=== PATIENT | male | born 1980 | race Caucasian/White ===

== ENCOUNTER 2016-10-10 14:00 | Outpatient (RCR) | payer OTHER ==
[~2016-10-10 14:00] MED LIST: AMITRIP50 PO; ATARAX25 PO; ATARAX50 PO; CHAN0.5P PO; CIPRO250 PO; CIPRO500 PO; DOXYCYC100 PO; FLONASESPR NASAL; LEXAPRO10 PO; MOTRIN800 PO; PROZAC20 PO; SINGULAI10 PO; VARE05TA; [UNRECOGNIZED DRUG - CODE] PO
== END 2016-10-11 | disposition home or self-care (01) ==
LOC: M OUTALCOH 14:00
PROVIDERS: ATTEND Psychiatry & Neurology Psychiatry
DX: F10.20 Alcohol dependence, uncomplicated (principal); F11.20 Opioid dependence, uncomplicated; F14.20 Cocaine dependence, uncomplicated; F12.20 Cannabis dependence, uncomplicated; F17.200 Nicotine dependence, unspecified, uncomplicated

== ENCOUNTER 2016-11-03 16:00 | Outpatient (RCR) | payer OTHER | END 2016-11-08 | LOC: M OUTALCOH 16:00 | PROVIDERS: ATTEND Psychiatry & Neurology Psychiatry | DX: F11.20 Opioid dependence, uncomplicated (principal); F14.20 Cocaine dependence, uncomplicated; F12.20 Cannabis dependence, uncomplicated; F10.20 Alcohol dependence, uncomplicated; F17.200 Nicotine dependence, unspecified, uncomplicated ==

== ENCOUNTER → 2016-11-07 | Outpatient (REF) | payer OTHER ==
[2016-11-07 17:54] LABS: FREE T4 1.07 NG/DL (0.76-1.46)
== END ==
LOC: M LABDRAW1 17:02
PROVIDERS: ATTEND Family Medicine
DX: R53.83 Other fatigue (principal); N52.9 Male erectile dysfunction, unspecified

== ENCOUNTER 2016-12-08 16:00 | Outpatient (RCR) | payer OTHER | END 2016-12-09 | LOC: M OUTALCOH 16:00 | PROVIDERS: ATTEND Psychiatry & Neurology Psychiatry | DX: F11.20 Opioid dependence, uncomplicated (principal); F14.20 Cocaine dependence, uncomplicated; F12.20 Cannabis dependence, uncomplicated; F10.20 Alcohol dependence, uncomplicated; F17.200 Nicotine dependence, unspecified, uncomplicated ==

== ENCOUNTER → 2016-12-20 | Emergency (ER) | payer MEDICAID, OTHER ==
[~2016-12-20] VITALS: Ht 190.5 cm; Wt 99.8 kg
[~2016-12-20] MED LIST changes: +AUGM875T27 PO; +AUGMENTIN 875 MG TAB PO ONE; +CETI10TA PO; +D3-5CAP PO; +MONT10TA2 PO
[2016-12-20 21:12] VITALS: BP 122/77
== END | disposition home or self-care (01) ==
LOC: M ED 21:06
DX: H66.91 Otitis media, unspecified, right ear (principal); Z88.5 Allergy status to narcotic agent; Z88.0 Allergy status to penicillin; Z91.018 Allergy to other foods; Z79.899 Other long term (current) drug therapy; J45.909 Unspecified asthma, uncomplicated; N41.1 Chronic prostatitis

== ENCOUNTER 2016-12-28 08:00 | Outpatient (RCR) | payer MEDICAID ==
[~2016-12-28 08:00] MED LIST changes: -AUGMENTIN 875 MG TAB PO ONE
== END 2017-01-08 ==
LOC: M OUTALCOH 08:00
PROVIDERS: ATTEND Psychiatry & Neurology Psychiatry
DX: F11.20 Opioid dependence, uncomplicated (principal); F14.20 Cocaine dependence, uncomplicated; F12.20 Cannabis dependence, uncomplicated; F10.20 Alcohol dependence, uncomplicated; F17.200 Nicotine dependence, unspecified, uncomplicated

== ENCOUNTER 2017-01-23 16:00 | Outpatient (RCR) | payer OTHER | END 2017-02-08 | LOC: M OUTALCOH 16:00 | PROVIDERS: ATTEND Psychiatry & Neurology Psychiatry | DX: F10.20 Alcohol dependence, uncomplicated (principal); F11.20 Opioid dependence, uncomplicated; F14.20 Cocaine dependence, uncomplicated; F12.20 Cannabis dependence, uncomplicated; F17.200 Nicotine dependence, unspecified, uncomplicated ==

== ENCOUNTER 2017-03-01 13:37 | Outpatient (RCR) | payer MEDICAID ==
[~2017-03-01 13:37] MED LIST changes: -AUGM875T27 PO; +AUGM875T28 PO
== END 2017-03-10 ==
LOC: M OUTALCOH 13:37
PROVIDERS: ATTEND Psychiatry & Neurology Psychiatry
DX: F11.20 Opioid dependence, uncomplicated (principal); F14.20 Cocaine dependence, uncomplicated; F12.20 Cannabis dependence, uncomplicated; F10.20 Alcohol dependence, uncomplicated; F17.200 Nicotine dependence, unspecified, uncomplicated

== ENCOUNTER 2017-03-27 11:03 | Outpatient (RCR) | payer MEDICAID | END 2017-04-10 | LOC: M OUTALCOH 11:03 | PROVIDERS: ATTEND Psychiatry & Neurology Psychiatry | DX: F10.20 Alcohol dependence, uncomplicated (principal); F11.20 Opioid dependence, uncomplicated; F14.20 Cocaine dependence, uncomplicated; F17.200 Nicotine dependence, unspecified, uncomplicated ==

== ENCOUNTER 2017-04-17 15:49 | Outpatient (RCR) | payer MEDICAID ==
[2017-05-11] MEDS ORDERED: NAPR500T PO (23:46)
== END 2017-05-11 ==
LOC: M OUTALCOH 15:49
PROVIDERS: ATTEND Psychiatry & Neurology Psychiatry
DX: F10.20 Alcohol dependence, uncomplicated (principal); F11.20 Opioid dependence, uncomplicated; F14.20 Cocaine dependence, uncomplicated; F12.20 Cannabis dependence, uncomplicated; F17.200 Nicotine dependence, unspecified, uncomplicated

== ENCOUNTER 2017-05-11 22:23 | Emergency (ER) | payer MEDICAID, OTHER ==
[~2017-05-11] VITALS: Ht 190.5 cm; Wt 104.5 kg
[2017-05-11 22:24] VITALS: BP 134/84
[2017-05-11] MEDS ORDERED: NAPROXEN 250 MG TAB PO ONE (23:45)
[2017-05-11] MEDS ORDERED: NAPR500T PO (23:46)
== END 2017-05-12 00:18 | disposition home or self-care (01) ==
LOC: M ED 22:23
DX: S93.491A Sprain of other ligament of right ankle, initial encounter (principal); X58.XXXA Exposure to other specified factors, initial encounter; Y92.019 Unspecified place in single-family (private) house as the place of occurrence of the external cause; Y93.89 Activity, other specified; Y99.8 Other external cause status; Z88.1 Allergy status to other antibiotic agents; Z88.5 Allergy status to narcotic agent; Z91.018 Allergy to other foods

== ENCOUNTER 2017-05-23 11:53 | Outpatient (RCR) | payer MEDICAID ==
[~2017-05-23 11:53] MED LIST changes: +NAPR500T PO
== END 2017-06-10 ==
LOC: M OUTALCOH 11:53
PROVIDERS: ATTEND Psychiatry & Neurology Psychiatry
DX: F11.20 Opioid dependence, uncomplicated (principal); F12.20 Cannabis dependence, uncomplicated; F14.20 Cocaine dependence, uncomplicated; F10.20 Alcohol dependence, uncomplicated; F17.200 Nicotine dependence, unspecified, uncomplicated

== ENCOUNTER → 2017-07-19 | Outpatient (CLI) | payer OTHER | LOC: M LAB 12:08 | PROVIDERS: ATTEND Family Medicine | DX: R35.0 Frequency of micturition (principal) ==

== ENCOUNTER → 2017-07-19 | Outpatient (CLI) | payer OTHER ==
[2017-07-19 13:02] LABS: CONTROL LINE MONO INT CTR LINE PRESENT
== END ==
LOC: M LAB 12:06
PROVIDERS: ATTEND Physician Assistant
DX: R53.83 Other fatigue (principal)

== ENCOUNTER 2018-03-20 12:59 | Emergency (ER) | payer OTHER | END 2018-03-20 15:24 | disposition home or self-care (01) | LOC: M ED 12:59 | DX: M75.80 Other shoulder lesions, unspecified shoulder (principal); J45.909 Unspecified asthma, uncomplicated; Z79.1 Long term (current) use of non-steroidal anti-inflammatories (NSAID); Z88.0 Allergy status to penicillin; Z88.5 Allergy status to narcotic agent; Z91.018 Allergy to other foods; F17.210 Nicotine dependence, cigarettes, uncomplicated | CPT/HCPCS: 99283 ==

== ENCOUNTER 2018-11-17 16:33 | Emergency (ER) | payer OTHER ==
[~2018-11-17] VITALS: Ht 190.5 cm; Wt 100.0 kg
[~2018-11-17 16:33] MED LIST changes: +NAPR-50 PO; -NAPR500T PO
[2018-11-17] MEDS ORDERED: ACETAMINOPHEN 325 MG TAB PO ONE (17:15)
[2018-11-17] MEDS ORDERED: ONDANSETRON 4 MG ORAL DISINTEGRATING TAB (Q0162 PER 1MG) PO ONE (17:15)
[2018-11-17] MEDS ORDERED: LIDOCAINE 4% CREAM 5GM (LMX4) TOP ONE (17:15)
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
[2018-11-17] MEDS ORDERED: DERMABOND TOPICAL SKIN ADHESIVE TOP ONE (18:15)
[2018-11-17 18:17] VITALS: BP 119/83
== END 2018-11-17 18:17 | disposition home or self-care (01) ==
LOC: M ED 16:33
DX: S01.111A Laceration without foreign body of right eyelid and periocular area, initial encounter (principal); S09.90XA Unspecified injury of head, initial encounter; W22.8XXA Striking against or struck by other objects, initial encounter; Y92.89 Other specified places as the place of occurrence of the external cause; F90.9 Attention-deficit hyperactivity disorder, unspecified type; F17.200 Nicotine dependence, unspecified, uncomplicated; Z88.0 Allergy status to penicillin; Z88.5 Allergy status to narcotic agent; Z91.018 Allergy to other foods
CPT/HCPCS: 12011; 70450; 70480; 99283; Q0162

== ENCOUNTER → 2019-11-25 | Outpatient (REF) | payer OTHER ==
[~2019-11-25] MED LIST changes: -MONT10TA2 PO; +MONT10TA4 PO; -NAPR-50 PO; +NAPR-837 PO
== END ==
LOC: M LAB REF 15:51
PROVIDERS: ATTEND Physician Assistant Medical
DX: R53.83 Other fatigue (principal)

== ENCOUNTER → 2020-06-22 | Outpatient (CLI) | payer OTHER ==
--- NOTE | 2020-06-25 13:40 | REP ---
TARGETED LEEFT BREAST AND COMPARISON RIGHT BREAST SUBAREOLAR SONOGRAPHY HISTORY: Painful mass behind the nipple of the left breast x2 weeks. COMPARISON BREAST IMAGING: None. FINDINGS: Subareolar sonography on the left demonstrates a fan-shaped area of subareolar hypoechoic fibroglandular tissue consistent with gynecomastia. No acoustic shadowing or architectural distortion is seen. Similar changes are noted on the right in the retroareolar region although less pronounced. IMPRESSION: BI-RADS Category 2 benign findings, gynecomastia pattern subareolar region left greater than right. Clinical follow-up is advised. JENNIFER
== END ==
LOC: M RAD 13:19
PROVIDERS: ATTEND Physician Assistant
DX: N62 Hypertrophy of breast (principal); N63.20 Unspecified lump in the left breast, unspecified quadrant

== ENCOUNTER 2021-02-26 22:59 | Emergency (ER) | payer OTHER ==
[~2021-02-26] VITALS: Ht 190.5 cm; Wt 100.1 kg
[~2021-02-26 22:59] MED LIST changes: +MONT10TA10 PO; -MONT10TA4 PO
--- NOTE | 2021-02-27 00:01 | REPVR ---
PROCEDURE INFORMATION: Exam: XR Left Knee Exam date and time: 02/26/2021 11:08 PM Age: 40 years old Clinical indication: Injury TECHNIQUE: Imaging protocol: XR Left knee. Views: 4 or more views. COMPARISON: No relevant prior studies available. FINDINGS: Bones/joints: There is no fracture or dislocation. No joint effusion is identified. The joint spaces are preserved. No arthropathy is noted. Incidental note is made of a small bone island in the left medial femoral condyle. Soft tissues: Unremarkable. IMPRESSION: No fracture or dislocation of the left knee. Electronically signed by: Manish Garcia On 02/27/2021 00:00:37 AM
[2021-02-27] MEDS ORDERED: predniSONE 20 MG TAB PO ONE (01:15)
[2021-02-27] MEDS ORDERED: PRED20TA PO (01:19)
[2021-02-27 01:39] VITALS: BP 120/66
== END 2021-02-27 01:45 | disposition home or self-care (01) ==
LOC: M ED 22:59
DX: M70.52 Other bursitis of knee, left knee (principal); F90.9 Attention-deficit hyperactivity disorder, unspecified type; Z88.1 Allergy status to other antibiotic agents; Z88.6 Allergy status to analgesic agent; F17.200 Nicotine dependence, unspecified, uncomplicated
CPT/HCPCS: 73564; 99283; J7512

== ENCOUNTER 2021-05-05 09:21 | Emergency (ER) | payer OTHER ==
[~2021-05-05] VITALS: Ht 188 cm; Wt 98.6 kg
[~2021-05-05 09:21] MED LIST changes: +PRED20TA PO
[2021-05-05] MEDS ORDERED: METH10CO PO (09:26)
--- NOTE | 2021-05-05 10:52 | REP ---
INDICATION: hurts to breath in decreased breath sounds r>L. COMPARISON: Comparison chest x-ray February 23, 2009. TECHNIQUE: Two views.. FINDINGS: There is platelike atelectasis in the lung bases bilaterally, right greater than left there is no evidence of pneumothorax or hydrothorax. Heart is not enlarged. Pulmonary vasculature is not felt to be increased. No infiltrate is appreciated. No acute bony abnormality is seen.. IMPRESSION: Bibasilar discoid atelectasis, right greater than left. <Electronically signed by Carlos Gan > 05/05/21 [id number]
--- NOTE | 2021-05-05 10:53 | REP ---
INDICATION: chest pain right with breathing. COMPARISON: Comparison is made with today's chest x-ray. TECHNIQUE: Four views of the right rib cage. FINDINGS: There is platelike atelectasis in the lung bases bilaterally, right more so than left. There is no evidence of pneumothorax. No visible hydrothorax. Multiple views of the right rib cage show no visible rib fracture or bony destructive lesion. IMPRESSION: Bibasilar discoid atelectasis in the lungs. Otherwise negative right rib radiographs. <Electronically signed by Carlos Gan > 05/05/21 [id number]
[2021-05-05 11:04] LABS: BASO % 0.5 % (0.0-1.0); EOS # 0.1 10^3/uL (0.0-0.5); EOS % 0.9 % (0.0-3.0); HEMATOCRIT 40.3 % (42.0-52.0); HEMOGLOBIN 13.4 g/dl (13.5-17.5); LYMPH # 1.8 10^3/uL (1.5-5.0); LYMPH % 21.2 % (24.0-44.0); MEAN CORPUSCULAR HGB CONC 33.3 g/dl (32.0-36.5); MEAN CORPUSCULAR VOLUME 90.2 fl (80.0-96.0); MONO # 0.7 10^3/uL (0.0-0.8); MONO % 8.1 % (2.0-8.0); NEUTROPHILS # 5.9 10^3/uL (1.5-8.5); NEUTROPHILS % 68.9 % (36.0-66.0); PLATELET COUNT, AUTOMATED 273 10^3/uL (150-450); RED BLOOD COUNT 4.47 10^6/uL (4.30-6.10); WHITE BLOOD COUNT 8.5 10^3/uL (4.0-10.0)
[2021-05-05 11:32] LABS: ALBUMIN 3.5 GM/DL (3.2-5.2); ALT/SGPT 28 U/L (12-78); BILIRUBIN,DIRECT < 0.1 MG/DL (0.0-0.2); BILIRUBIN,TOTAL 0.4 MG/DL (0.2-1.0); CK-MB VALUE MASS < 1.0 NG/ML (<3.6); CPK CREATINE PHOSPHOKINASE 144 U/L (39-308); LIPASE 73 U/L (73-393); MB/CK RELATIVE INDEX 0.69 (< OR =4); TOTAL PROTEIN 7.4 GM/DL (6.4-8.2); TROPONIN I < 0.02 NG/ML (< 0.10)
[2021-05-05] MEDS ORDERED: ISOVUE-370 76% 100ML VIAL As Ordered ONE (11:45)
--- NOTE | 2021-05-05 12:33 | REP ---
INDICATION: cp and elevated dimer COMPARISON: None. TECHNIQUE: Axial contrast enhanced images from the thoracic inlet to the upper abdomen using pulmonary embolus technique with multiplanar re-formations. 75 ml Isovue 370 intravenous contrast material administered without complication. This CT examination was performed using the following dose reduction techniques: Automated exposure control, adjustment of mA and/or kv according to the patient's size, and use of iterative reconstruction technique. FINDINGS: Satisfactory enhancement of the pulmonary vasculature is achieved and no filling defects are identified to suggest pulmonary embolus. Further evaluation of the mediastinum demonstrates normal thoracic aorta, heart and pericardium. Moderate areas of ill-defined atelectasis/consolidation identified in the bilateral lower lobes and right middle lobe. No effusion. No pneumothorax. Tracheobronchial tree is patent. No significant adenopathy. Osseous structures are intact. Limited upper abdomen unremarkable. IMPRESSION: No evidence for pulmonary embolus. Ill-defined multifocal basilar opacities suggesting elements of atelectasis and or pneumonia. <Electronically signed by Reginaldo Cash > 05/05/21 [id number]
[2021-05-05 12:51] LABS: RSV AMPLIFICATION NEGATIVE (NEGATIVE)
[2021-05-05] MEDS ORDERED: IPRATROPIUM 0.5MG/ALBUTEROL 2.5MG INH SOL UD 3ML (DUONEB) NEB ONE (13:00)
[2021-05-05] MEDS ORDERED: ALBU83IN NEB (13:01)
[2021-05-05] MEDS ORDERED: DOXY1CAP62 PO (13:08)
[2021-05-05 13:34] VITALS: BP 138/85
--- NOTE | 2021-05-06 18:42 | ECGEPIP ---
[facility] - ED Test Date: 2021-05-05 Pat Name: TAJ OVERTON Department: Room: - Gender: Male Supervisor Webbing: JANNET : 1980 Requested By: VIRA Coburn PA-C Order Number: [id number] Reading MD: Racheal Scales Measurements Intervals Mercer Rate: 57 P: 46 GA: 184 QRS: 46 QRSD: 102 T: 22 QT: 434 QTc: 422 Interpretive Statements Sinus bradycardia No prior Electronically Signed on 05-06-2021 18:42:40 EDT by Racheal Scales
== END 2021-05-05 13:36 | disposition home or self-care (01) ==
LOC: M ED 09:21
DX: J18.9 Pneumonia, unspecified organism (principal); R07.9 Chest pain, unspecified; F11.20 Opioid dependence, uncomplicated; Z88.1 Allergy status to other antibiotic agents; Z88.6 Allergy status to analgesic agent; Z91.018 Allergy to other foods
CPT/HCPCS: 36415; 71046; 71100; 71275; 80047; 80076; 82550; 82553; 83690; 85025; 85379; 87631; 93005; 94010; 94640; 99284; Q9967

== ENCOUNTER → 2021-06-10 | Outpatient (REF) | payer OTHER ==
[~2021-06-10] MED LIST changes: +ALBU83IN NEB; +DOXY1CAP62 PO; +METH10CO PO
== END ==
LOC: M LAB REF 22:34
PROVIDERS: ATTEND Physician Assistant
DX: R05 Cough (principal)

== ENCOUNTER → 2021-11-30 | Outpatient (CLI) | payer OTHER ==
[~2021-11-30] MED LIST changes: +DOXY-443 PO; -DOXY1CAP62 PO; -MONT10TA10 PO; +MONT10TA97 PO
[2021-11-30 13:20] LABS: BASO # 0.1 10^3/uL (0.0-0.2); BASO % 0.8 % (0.0-1.0); EOS # 0.2 10^3/uL (0.0-0.5); EOS % 2.6 % (0.0-3.0); HEMATOCRIT 41.9 % (42.0-52.0); HEMOGLOBIN 14.1 g/dl (13.5-17.5); LYMPH # 2.7 10^3/uL (1.5-5.0); MEAN CORPUSCULAR HEMOGLOBIN 30.5 pg (27.0-33.0); MEAN CORPUSCULAR HGB CONC 33.7 g/dl (32.0-36.5); MEAN CORPUSCULAR VOLUME 90.5 fl (80.0-96.0); MONO # 0.7 10^3/uL (0.0-0.8); MONO % 9.2 % (2.0-8.0); NEUTROPHILS % 52.1 % (36.0-66.0); PLATELET COUNT, AUTOMATED 285 10^3/uL (150-450); RED BLOOD COUNT 4.63 10^6/uL (4.30-6.10); WHITE BLOOD COUNT 7.7 10^3/uL (4.0-10.0)
[2021-11-30 13:46] LABS: ALT/SGPT 23 U/L (12-78); BILIRUBIN,TOTAL 0.3 MG/DL (0.2-1.0); BLOOD UREA NITROGEN 13 MG/DL (7-18); CALCIUM LEVEL 9.5 MG/DL (8.5-10.1); CARBON DIOXIDE LEVEL 31 MEQ/L (21-32); CHLORIDE LEVEL 105 MEQ/L (98-107); CHOLESTEROL LEVEL 215 MG/DL (<200); CREATININE FOR GFR 1.03 MG/DL (0.70-1.30); GLOMERULAR FILTRATION RATE > 60.0 (>60); GLUCOSE, FASTING 80 MG/DL (70-100); POTASSIUM SERUM 4.1 MEQ/L (3.5-5.1); SODIUM LEVEL 140 MEQ/L (136-145); TRIGLYCERIDES LEVEL 193 MG/DL (<150)
[2021-11-30 13:47] LABS: ALBUMIN 3.9 GM/DL (3.2-5.2); CHOLESTEROL RISK RATIO 6.935 (<5); HDL CHOLESTEROL 31 MG/DL (>40); LDL CHOLESTEROL 145 MG/DL (<100); NON-HDL-C 184 MG/DL; TOTAL PROTEIN 7.2 GM/DL (6.4-8.2)
== END ==
LOC: M WUC 11:49
PROVIDERS: ATTEND Physician Assistant
DX: Z13.220 Encounter for screening for lipoid disorders (principal)

== ENCOUNTER → 2021-11-30 | Outpatient (CLI) | payer OTHER ==
[2021-11-30 13:20] LABS: HEMATOCRIT 42.2 % (42.0-52.0); HEMOGLOBIN 14.2 g/dl (13.5-17.5); MEAN CORPUSCULAR HEMOGLOBIN 30.5 pg (27.0-33.0); MEAN CORPUSCULAR HGB CONC 33.6 g/dl (32.0-36.5); MEAN CORPUSCULAR VOLUME 90.8 fl (80.0-96.0); PLATELET COUNT, AUTOMATED 286 10^3/uL (150-450); RED BLOOD COUNT 4.65 10^6/uL (4.30-6.10); WHITE BLOOD COUNT 7.8 10^3/uL (4.0-10.0)
[2021-11-30 13:46] LABS: ALT/SGPT 22 U/L (12-78); BILIRUBIN,TOTAL 0.3 MG/DL (0.2-1.0); BLOOD UREA NITROGEN 13 MG/DL (7-18); CALCIUM LEVEL 9.5 MG/DL (8.5-10.1); CARBON DIOXIDE LEVEL 34 MEQ/L (21-32); CHLORIDE LEVEL 104 MEQ/L (98-107); CREATININE FOR GFR 1.14 MG/DL (0.70-1.30); GLOMERULAR FILTRATION RATE > 60.0 (>60); GLUCOSE, FASTING 79 MG/DL (70-100); POTASSIUM SERUM 4.6 MEQ/L (3.5-5.1); SODIUM LEVEL 140 MEQ/L (136-145); TOTAL PROTEIN 7.3 GM/DL (6.4-8.2)
[2021-11-30 14:01] LABS: HEPATITIS B SURFACE ANTIGEN NEGATIVE (NEGATIVE)
[2021-11-30 14:29] LABS: HIV 1&2 SCREEN CENTAUR NEGATIVE (NEGATIVE)
[2021-11-30 14:30] LABS: HEPATITIS C VIRUS ABY INDEX 6.9 INDEX (<0.8)
[2021-11-30 14:54] LABS: GC DNA AMPLIFICATION NEGATIVE (NEGATIVE)
== END ==
LOC: M WUC 11:52
PROVIDERS: ATTEND Family Medicine
DX: F11.20 Opioid dependence, uncomplicated (principal)
CPT/HCPCS: 36415; 80053; 85027; 86780; 86803; 87340; 87389; 87521; 87810; 87850; G0480

== ENCOUNTER → 2021-12-01 | Outpatient (CLI) | payer OTHER | LOC: M WUC 08:13 | PROVIDERS: ATTEND Family Medicine | DX: F11.20 Opioid dependence, uncomplicated (principal) | CPT/HCPCS: 36415; G0480 ==

== ENCOUNTER 2022-01-29 12:26 | Emergency (ER) | payer OTHER ==
[~2022-01-29] VITALS: Ht 188 cm; Wt 101.4 kg
[2022-01-29] MEDS ORDERED: LOTR1CRE3 TOP (13:33)
[2022-01-29] MEDS ORDERED: BACT800T5 PO (14:18)
[2022-01-29 14:32] VITALS: BP 134/79
== END 2022-01-29 14:33 | disposition home or self-care (01) ==
LOC: M ED 12:26
DX: M25.562 Pain in left knee (principal); M79.652 Pain in left thigh; B35.3 Tinea pedis; M51.36 Other intervertebral disc degeneration, lumbar region; E78.5 Hyperlipidemia, unspecified; J45.909 Unspecified asthma, uncomplicated; F17.200 Nicotine dependence, unspecified, uncomplicated; F90.9 Attention-deficit hyperactivity disorder, unspecified type; Z91.02 Food additives allergy status; Z88.1 Allergy status to other antibiotic agents; Z88.5 Allergy status to narcotic agent

== ENCOUNTER → 2022-03-17 | Outpatient (CLI) | payer OTHER ==
[~2022-03-17] MED LIST changes: +ALBU2.5V10 NEB; -ALBU83IN NEB; +BACT800T5 PO; +LOTR1CRE3 TOP
== END ==
LOC: M PLAIMG 07:05
PROVIDERS: ATTEND Orthopaedic Surgery
DX: M47.892 Other spondylosis, cervical region (principal)

== ENCOUNTER → 2022-03-21 | Outpatient (CLI) | payer OTHER | LOC: M WHC 14:17 | PROVIDERS: ATTEND Physician Assistant | DX: N63.21 Unspecified lump in the left breast, upper outer quadrant (principal) ==

== ENCOUNTER → 2022-04-07 | Outpatient (CLI) | payer OTHER ==
[2022-04-07 19:42] LABS: FREE T4 0.97 NG/DL (0.76-1.46); HCG, SERUM QUANTITATIVE < 1.0 MIU/ML; THYROID STIMULATING HORMONE 0.886 uIU/ML (0.358-3.740)
[2022-04-07 20:05] LABS: LUTEINIZING HORMONE 8.2 mIU/mL (1.5-9.3); TESTOSTERONE 223 NG/DL (241-827)
[2022-04-07 20:06] LABS: ESTRADIOL < 19.0 PG/ML (<39.8)
== END ==
LOC: M WUC 14:00
PROVIDERS: ATTEND Physician Assistant
DX: N62 Hypertrophy of breast (principal)

== ENCOUNTER → 2023-05-03 | Outpatient (CLI) | payer OTHER | LOC: M PLAIMG 09:42 | PROVIDERS: ATTEND Physician Assistant | DX: G44.229 Chronic tension-type headache, not intractable (principal); R41.3 Other amnesia; M47.22 Other spondylosis with radiculopathy, cervical region; Z53.9 Procedure and treatment not carried out, unspecified reason ==

== ENCOUNTER → 2024-02-29 | Outpatient (REF) | payer OTHER ==
[~2024-02-29] MED LIST changes: +DOXY-323 PO; -DOXY-443 PO
[2024-02-29 17:05] LABS: HEMATOCRIT 38.5 % (42.0-52.0); HEMOGLOBIN 12.9 g/dl (13.5-17.5); MEAN CORPUSCULAR HGB CONC 33.5 g/dl (32.0-36.5); MEAN CORPUSCULAR VOLUME 89.5 fl (80.0-96.0); PLATELET COUNT, AUTOMATED 179 10^3/uL (150-450); WHITE BLOOD COUNT 6.7 10^3/uL (4.0-10.0)
[2024-02-29 17:13] LABS: ALBUMIN 3.7 G/DL (3.2-5.2); ALKALINE PHOSPHATASE 101 U/L (46-116); ALT/SGPT 62 U/L (7.0-40); AST/SGOT 34 U/L (<34); BILIRUBIN,TOTAL 0.4 MG/DL (0.3-1.2); BLOOD UREA NITROGEN 15 MG/DL (9-23); CALCIUM LEVEL 9.1 MG/DL (8.5-10.1); CARBON DIOXIDE LEVEL 30 MMOL/L (20-31); CHLORIDE LEVEL 106 MMOL/L (98-107); GLOMERULAR FILTRATION RATE > 60.0 (>60); GLUCOSE, FASTING 76 MG/DL (60-100); POTASSIUM SERUM 4.3 MMOL/L (3.5-5.1); SODIUM LEVEL 139 MMOL/L (136-145); TOTAL PROTEIN 6.8 G/DL (5.7-8.2)
[2024-02-29 17:27] LABS: HEPATITIS B SURFACE ANTIGEN NEGATIVE (NEGATIVE)
[2024-02-29 17:40] LABS: HIV 1&2 SCREEN NEGATIVE (NEGATIVE)
[2024-02-29 17:51] LABS: HEPATITIS C VIRUS ABY INDEX > 11.00 INDEX (<0.8)
[2024-02-29 20:31] LABS: GC DNA AMPLIFICATION NEGATIVE (NEGATIVE)
[2024-03-05 13:27] LABS: HCV RNA QUANTITATION <15 NOT DETECTED IU/mL (NOT DETECTED); HCV RNA log10 <1.18 NOT DETECTED Log IU/mL (NOT DETECTED)
== END ==
LOC: M LABWUC 16:11
PROVIDERS: ATTEND Family Medicine
DX: F11.20 Opioid dependence, uncomplicated (principal)

== ENCOUNTER → 2024-02-29 | Outpatient (REF) | payer OTHER ==
[2024-02-29 14:44] LABS: APPEARANCE, URINE CLEAR (CLEAR); BACTERIA, URINE AUTO NEGATIVE (NEGATIVE); BILIRUBIN, URINE AUTO NEGATIVE (NEGATIVE); BLOOD, URINE BLOOD NEGATIVE (NEGATIVE); COLOR, URINE YELLOW (YELLOW); GLUCOSE, URINE (UA) AUTO NEGATIVE (NEGATIVE); KETONE, URINE AUTO NEGATIVE (NEGATIVE); LEUKOCYTE ESTERASE, URINE AUTO NEGATIVE (NEGATIVE); MUCUS, URINE SMALL (NEGATIVE); NITRITE, URINE AUTO NEGATIVE (NEGATIVE); PROTEIN, URINE AUTO NEGATIVE (NEGATIVE); RBC, URINE AUTO 1 /HPF (0-3); SPECIFIC GRAVITY URINE AUTO 1.021 (1.002-1.035); SQUAMOUS EPITHELIAL CELL UR AU 0 /HPF (0-6); WBC, URINE AUTO 1 /HPF (0-3)
[2024-02-29 16:02] LABS: Trichomonas vaginalis (AMP) NOT DETECTED (NEGATIVE)
[2024-02-29 16:26] LABS: GC DNA AMPLIFICATION NEGATIVE (NEGATIVE)
== END ==
LOC: M LAB REF 12:14
PROVIDERS: ATTEND Physician Assistant
DX: Z20.2 Contact with and (suspected) exposure to infections with a predominantly sexual mode of transmission (principal)

== ENCOUNTER → 2024-03-03 | Outpatient (REF) | payer OTHER | LOC: M LAB REF 17:51 | PROVIDERS: ATTEND Physician Assistant Medical | DX: J02.9 Acute pharyngitis, unspecified (principal) ==

== ENCOUNTER → 2024-06-12 | Outpatient (REF) | payer OTHER ==
[~2024-06-12] MED LIST changes: -DOXY-323 PO; +DOXY-441 PO
== END ==
LOC: M LAB REF 20:54
PROVIDERS: ATTEND Physician Assistant
DX: B34.9 Viral infection, unspecified (principal)

== ENCOUNTER → 2024-06-13 | Outpatient (CLI) | payer OTHER | LOC: M WUC 12:25 | PROVIDERS: ATTEND Physician Assistant | DX: R06.02 Shortness of breath (principal); R05.9 Cough, unspecified ==

== ENCOUNTER → 2024-08-03 | Outpatient (CLI) | payer OTHER ==
[2024-08-03 11:40] LABS: BASO % 0.6 % (0.0-1.0); EOS # 0.1 10^3/uL (0.0-0.5); HEMATOCRIT 45.1 % (42.0-52.0); HEMOGLOBIN 14.7 g/dl (13.5-17.5); LYMPH # 2.1 10^3/uL (1.5-5.0); LYMPH % 33.5 % (24.0-44.0); MEAN CORPUSCULAR HEMOGLOBIN 29.6 pg (27.0-33.0); MEAN CORPUSCULAR HGB CONC 32.6 g/dl (32.0-36.5); MEAN CORPUSCULAR VOLUME 90.7 fl (80.0-96.0); MONO # 0.5 10^3/uL (0.0-0.8); MONO % 7.4 % (2.0-8.0); NEUTROPHILS # 3.6 10^3/uL (1.5-8.5); NEUTROPHILS % 56.3 % (36.0-66.0); PLATELET COUNT, AUTOMATED 259 10^3/uL (150-450); RED BLOOD COUNT 4.97 10^6/uL (4.30-6.10); WHITE BLOOD COUNT 6.4 10^3/uL (4.0-10.0)
[2024-08-03 12:09] LABS: PSA SCREENING 0.49 NG/ML (< 4.00)
[2024-08-03 12:11] LABS: ALBUMIN 3.7 G/DL (3.2-5.2); ALKALINE PHOSPHATASE 90 U/L (40-129); ALT/SGPT 18 U/L (7.0-40); AST/SGOT 11 U/L (<34); BILIRUBIN,TOTAL 0.5 MG/DL (0.3-1.2); BLOOD UREA NITROGEN 13 MG/DL (9-23); CALCIUM LEVEL 9.8 MG/DL (8.5-10.1); CARBON DIOXIDE LEVEL 31 MMOL/L (20-31); CHLORIDE LEVEL 106 MMOL/L (98-107); CHOLESTEROL LEVEL 174 MG/DL (<200); CHOLESTEROL RISK RATIO 4.42 (<5); CREATININE FOR GFR 0.86 MG/DL (0.70-1.30); GLOMERULAR FILTRATION RATE > 60.0 (>60); GLUCOSE, FASTING 91 MG/DL (60-100); HDL CHOLESTEROL 39.3 MG/DL (>40); LDL CHOLESTEROL 100.3 MG/DL (<100); NON-HDL-C 134.7 MG/DL; POTASSIUM SERUM 4.6 MMOL/L (3.5-5.1); SODIUM LEVEL 140 MMOL/L (136-145); TOTAL PROTEIN 7.2 G/DL (5.7-8.2); TRIGLYCERIDES LEVEL 172 MG/DL (<150)
[2024-08-03 12:24] LABS: HEMOGLOBIN A1c 5.5 % (4.0-6.0)
[2024-08-03 13:05] LABS: HEPATITIS C VIRUS ABY INDEX > 11.00 INDEX (<0.8)
== END ==
LOC: M LAB 10:27
PROVIDERS: ATTEND Physician Assistant
DX: Z00.00 Encounter for general adult medical examination without abnormal findings (principal); R76.8 Other specified abnormal immunological findings in serum; E29.1 Testicular hypofunction; E78.2 Mixed hyperlipidemia; Z87.438 Personal history of other diseases of male genital organs

== ENCOUNTER → 2025-08-21 | Outpatient (CLI) | payer OTHER ==
[2025-08-25 14:17] LABS: RUBEOLA IgG ANTIBODY 93.40 AU/mL (>16.49)
== END ==
LOC: M LAB 15:44
PROVIDERS: ATTEND Physician Assistant
DX: Z41.8 Encounter for other procedures for purposes other than remedying health state (principal)